=== PATIENT | male | born 1945 | race Caucasian/White ===

== ENCOUNTER 2019-06-22 10:33 | Observation (INO) | payer MEDICARE, BC ==
[2019-06-22] MEDS ORDERED: Sodium Chloride 0.9% 10 ML Syringe FLUSH PRN (10:55)
--- NOTE | 2019-06-22 10:59 | EDM.PDOC ---
ED HPI GENERAL MEDICAL PROBLEM - General Chief Complaint: Syncope Stated Complaint: DIZZINESS/FALLS Time Seen by Provider: 06/22/19 10:47 Source of Information: Reports: Patient, RN Notes Reviewed History Limitations: Reports: No Limitations - History of Present Illness INITIAL COMMENTS - FREE TEXT/NARRATIVE: Patient is an unfortunate 73-year-old male who presents emergency Department today with complaint of dizziness and syncope. Patient reports that he was in his normal state of health until approximately 4 AM this morning when he awoke to get out of bed to go to the bathroom and felt the room spinning type dizziness. Patient did fall at that time does not remember if he lost consciousness or not. Patient reports that he has had multiple episodes of dizziness and falling since then. He did suffer loss of consciousness as he thinks he fell and hit his head because his glasses were bent and then he called his and told her that and she brought him to the emergency department for evaluation. Positive nausea positive vomiting no chest pain no shortness of breath no hematemesis no hematochezia and no melena Chest Pain Score (Numeric/FACES): 6 - Related Data Allergies Allergy/AdvReac Type Severity Reaction Status Date / Time No Known Allergies Allergy Verified 06/22/19 10:43 Home Meds: Home Meds Meloxicam [Mobic] 7.5 mg PO DAILY 07/16/14 [History] Rosuvastatin [Crestor] 5 mg PO DAILY 07/16/14 [History] Tamsulosin [Flomax] 0.8 mg PO DAILY 07/16/14 [History] Triamterene [Dyrenium] 50 mg PO DAILY 07/16/14 [History] amLODIPine Besylate [Amlodipine Besylate] 10 mg PO DAILY 07/16/14 [History] Past Medical History HEENT History: Reports: Impaired Vision Cardiovascular History: Reports: High Cholesterol, Hypertension Genitourinary History: Reports: Other (See Below) Other Genitourinary History: growth on kidneys Musculoskeletal History: Reports: Arthritis Oncologic (Cancer) History: Reports: Prostate - Infectious Disease History Infectious Disease History: Reports: Chicken Pox, Measles - Past Surgical History GI Surgical History: Reports: Cholecystectomy Social & Family History - Family History Family Medical History: Noncontributory ED ROS GENERAL - Review of Systems Review Of Systems: See Below Constitutional: Denies: Fever, Chills Respiratory: Denies: Shortness of Breath, Cough Cardiovascular: Denies: Chest Pain GI/Abdominal: Reports: Vomiting Neurological: Reports: Dizziness, Headache, Syncope ED EXAM, DIZZINESS - Physical Exam Exam: See Below Exam Limited By: No Limitations General Appearance: Alert, WD/WN, Mild Distress Eye Exam: Bilateral Eye: EOMI, PERRL Ears: Normal External Exam, Normal Canal, Normal TMs Throat/Mouth: Normal Inspection, Normal Lips, Normal Teeth, Normal Gums, Normal Oropharynx, Normal Voice, No Airway Compromise Head Exam: Atraumatic, Normocephalic Vertigo: reproducible (Worsens with position change) Neck: Normal Inspection, Supple, Non-Tender, Full Range of Motion Respiratory/Chest: No Respiratory Distress, Lungs Clear, Normal Breath Sounds, No Accessory Muscle Use, Chest Non-Tender Cardiovascular: Normal Peripheral Pulses, Regular Rate, Rhythm, No Edema, No Gallop, No JVD, No Murmur, No Rub GI/Abdominal: Normal Bowel Sounds, Soft, Non-Tender, No Organomegaly, No Distention, No Abnormal Bruit, No Mass Neurological: Alert, Normal Mood/Affect, Normal Dorsiflexion, CN II-XII Intact, Normal Plantar Flexion, Normal Gait, Normal Reflexes, No Motor/Sensory Deficits , Oriented x 3 Back Exam: Normal Inspection, Full Range of Motion, NT Extremities: Normal Inspection Skin Exam: Warm, Dry, Intact, No Rash EKG INTERPRETATION EKG Date: 06/22/19 Time: 11:44 Rhythm: Other (ST) Rate (Beats/Min): 104 [place]: Normal P-Wave: Present QRS: Normal ST-T: Other (Nonspecific changes) QT: Normal EKG Interpretation Comments: no acute changes Course - Vital Signs Last Recorded V/S: Last Vital Signs Temp 97.7 F 06/22/19 10:35 Pulse 100 06/22/19 10:35 Resp 14 06/22/19 10:35 BP 147/87 H 06/22/19 10:35 Pulse Ox 100 06/22/19 10:35 Orthostatic Blood Pressure [ 112/75 Standing] Orthostatic Blood Pressure [ 119/81 Sitting] Orthostatic Blood Pressure [ 127/78 Supine] - Orders/Labs/Meds Orders: Active Orders 24 hr Category Date Time Status EKG Documentation Completion [RC] ASDIRECTED Care 06/22/19 10:55 Active Orthostatic Vital Signs [RC] ASDIRECTED Care 06/22/19 14:01 Active Sodium Chloride 0.9% [Normal Saline] 1,000 ml Med 06/22/19 14:46 Active IV ONETIME Sodium Chloride 0.9% [Saline Flush] Med 06/22/19 10:55 Active 10 ml FLUSH ASDIRECTED PRN Saline Lock Insert [OM.PC] Stat Oth 06/22/19 10:54 Ordered EKG 12 Lead [EK] Stat Ther 06/22/19 10:54 Ordered Medication Orders Sodium Chloride (Normal Saline) 1,000 mls @ 1,000 mls/hr IV ONETIME ONE Stop: 06/22/19 15:45 Sodium Chloride (Saline Flush) 10 ml FLUSH ASDIRECTED PRN PRN Reason: Keep Vein Open Last Admin: 06/22/19 11:03 Dose: 10 ml Labs: Laboratory Tests 06/22/19 06/22/19 06/22/19 Range/Units 11:03 11:03 13:05 WBC 11.36 H (4.23-9.07) K/mm3 RBC 4.78 (4.63-6.08) M/mm3 Hgb 14.6 (13.7-17.5) gm/dl Hct 42.4 (40.1-51.0) % MCV 88.7 (79.0-92.2) fl MCH 30.5 (25.7-32.2) pg MCHC 34.4 (32.2-35.5) g/dl RDW Std Deviation 42.1 (35.1-43.9) fL Plt Count 240 (163-337) K/mm3 MPV 10.2 (9.4-12.3) fl Neut % (Auto) 88.9 H (34.0-67.9) % Lymph % (Auto) 7.2 L (21.8-53.1) % [place] % (Auto) 3.6 L (5.3-12.2) % Eos % (Auto) 0 L (0.8-7.0) Baso % (Auto) 0.0 L (0.1-1.2) % Neut # (Auto) 10.10 H (1.78-5.38) K/mm3 Lymph # (Auto) 0.82 L (1.32-3.57) K/mm3 [place] # (Auto) 0.41 (0.30-0.82) K/mm3 Eos # (Auto) 0.00 L (0.04-0.54) K/mm3 Baso # (Auto) 0.00 L (0.01-0.08) K/mm3 Manual Slide Review Abnormal smear Sodium 140 (136-145) mEq/L Potassium 3.8 (3.5-5.1) mEq/L Chloride 103 (98-107) mEq/L Carbon Dioxide 24 (21-32) mEq/L Anion Gap 16.8 H (5-15) BUN 26 H (7-18) mg/dL Creatinine 1.4 H (0.7-1.3) mg/dL Est Cr Clr Drug Dosing 49.25 mL/min Estimated GFR (MDRD) 50 (>60) mL/min BUN/Creatinine Ratio 18.6 H (14-18) Glucose 128 H (83-115) mg/dL Calcium 9.9 (8.5-10.1) mg/dL Total Bilirubin 0.5 (0.2-1.0) mg/dL AST 55 H (15-37) U/L ALT 34 (16-63) U/L Alkaline Phosphatase 77 (46-116) U/L Troponin I < 0.017 (0.00-0.056) ng/mL Total Protein 7.9 (6.4-8.2) g/dl Albumin 4.2 (3.4-5.0) g/dl Globulin 3.7 gm/dL Albumin/Globulin Ratio 1.1 (1-2) TSH 3rd Generation 0.807 (0.358-3.74) uIU/mL Urine Color Yellow (Yellow) Urine Appearance Clear (Clear) Urine pH 6.0 (5.0-8.0) Ur Specific [place] > or = 1.030 (1.005-1.030) Urine Protein 1+ H (Negative) Urine Glucose (UA) Negative (Negative) Urine Ketones Negative (Negative) Urine Occult Blood Negative (Negative) Urine Nitrite Negative (Negative) Urine Bilirubin Negative (Negative) Urine Urobilinogen 0.2 (0.2-1.0) Ur Leukocyte Esterase Negative (Negative) Urine RBC 0-5 (0-5) /hpf Urine WBC 0-5 (0-5) /hpf Ur Epithelial Cells 0-5 (0-5) /hpf Urine Bacteria Few (FEW) /hpf Hyaline Casts 5-10 H (0-5) /lpf Urine Mucus Many H (FEW) /hpf Meds: Medications Generic Name Dose Route Start Last Admin Trade Name Freq PRN Reason Stop Dose Admin Sodium Chloride 1,000 mls @ 1,000 mls/hr 06/22/19 14:46 Normal Saline IV 06/22/19 15:45 ONETIME ONE Sodium Chloride 10 ml 06/22/19 10:55 06/22/19 11:03 Saline Flush FLUSH 10 ml ASDIRECTED PRN Administration Keep Vein Open Discontinued Medications Generic Name Dose Route Start Last Admin Trade Name Freq PRN Reason Stop Dose Admin Meclizine HCl 25 mg 06/22/19 12:07 06/22/19 12:14 Antivert PO 06/22/19 12:08 25 mg ONETIME ONE Administration Ondansetron HCl 4 mg 06/22/19 12:10 06/22/19 12:14 Zofran IVPUSH 06/22/19 12:11 4 mg ONETIME ONE Administration - Re-Assessments/Exams Free Text/Narrative Re-Assessment/Exam: 06/22/19 13:58 MRI brain shows "impression: #1 Senescent changes as noted above. #2 no acute effusion Ralley's are seen. #3 [place] of the internal auditory canals appear unremarkable." CT head "impression: #1 Senescent changes as noted above. #2 nothing acute is appreciated on noncontrast head CT exam." 06/22/19 14:47 Free Text/Narrative Re-Assessment/Exam: 06/22/19 14:54 Discussed case with excepts patient into observation here for syncope Free Text/Narrative Re-Assessment/Exam: 06/22/19 14:55 Discussed case with patient answered all questions patient and agrees to inpatient observation on telemetry floor Departure - Departure Time of Disposition: 14:54 Disposition: Refer to Observation Clinical Impression: Syncope Qualifiers: Syncope type: unspecified Qualified Code(s): R55 - Syncope and collapse - Discharge Information Referrals: Jai Simon MD [Primary Care Provider] - Forms: ED Department Discharge Sepsis Event Note - Evaluation Sepsis Screening Result: No Definite Risk - Focused Exam Vital Signs: Vital Signs Temp Pulse Resp BP Pulse Ox 06/22/19 10:35 97.7 F 100 14 147/87 H 100 Date Exam was Performed: 06/22/19 Time Exam was Performed: 14:54 - My Orders Last 24 Hours: My Active Orders 06/22/19 10:54 Saline Lock Insert [OM.PC] Stat EKG 12 Lead [EK] Stat 06/22/19 10:55 EKG Documentation Completion [RC] ASDIRECTED Sodium Chloride 0.9% [Saline Flush] 10 ml FLUSH ASDIRECTED PRN 06/22/19 14:01 Orthostatic Vital Signs [RC] ASDIRECTED 06/22/19 14:46 Sodium Chloride 0.9% [Normal Saline] 1,000 ml IV ONETIME - Assessment/Plan Last 24 Hours: My Active Orders 06/22/19 10:54 Saline Lock Insert [OM.PC] Stat EKG 12 Lead [EK] Stat 06/22/19 10:55 EKG Documentation Completion [RC] ASDIRECTED Sodium Chloride 0.9% [Saline Flush] 10 ml FLUSH ASDIRECTED PRN 06/22/19 14:01 Orthostatic Vital Signs [RC] ASDIRECTED 06/22/19 14:46 Sodium Chloride 0.9% [Normal Saline] 1,000 ml IV ONETIME
--- NOTE | 2019-06-22 12:02 | CT ---
Head CT Technique: Multiple axial sections through the brain were obtained. Intravenous contrast was not utilized. Comparison: No prior intracranial imaging is available. Findings: Ventricles along with basal cisterns and sulci over the convexities are mildly prominent. Diminished density is noted within the periventricular and subcortical white matter which is compatible with small vessel ischemic demyelination change. No other abnormal parenchymal densities are seen. No evidence of intracranial hemorrhage. No midline shift or mass effect is appreciated. Bone window settings were reviewed which show no acute calvarial abnormality. Visualized paranasal sinuses show nothing acute. Mastoid sinuses also show nothing acute. Impression: 1. Senescent change as noted above. 2. Nothing acute is appreciated on noncontrast head CT exam. Diagnostic code #2 Study was dictated in [place] Standard Time
--- NOTE | 2019-06-22 12:02 | CR ---
Chest: Two views of the chest were obtained. Comparison: No prior chest imaging. Heart size and mediastinum are normal. Lungs are clear. Bony structures appear unremarkable for the patient's age. Impression: 1. Nothing acute is appreciated on two-view chest x-ray. Diagnostic code #1 Study was dictated in [place] Standard Time
[2019-06-22] MEDS ORDERED: Meclizine 12.5 MG Tab PO ONE (12:07)
[2019-06-22] MEDS ORDERED: Ondansetron 4 MG/2 ML SDV IVPUSH ONE (12:10)
--- NOTE | 2019-06-22 13:34 | MR ---
MRI brain Technique: T1 sagittal; T2, T2 FLAIR, T1, diffusion and gradient echo axial; thin T2 gradient echo axial images through the internal auditory canals. Comparison: Prior head CT study performed earlier on the same day (11:08 AM). Findings: Ventricles along with basal cisterns and sulci over the convexities are mildly prominent. Multiple areas of increased signal scattered within the periventricular and subcortical white matter compatible with small vessel ischemic demyelination change. No acute diffusion abnormalities are seen. Normal signal void is seen within the major cerebral arteries within the skull base. Contents of the internal auditory canals appear within normal limits. No discrete mass within the internal auditory canals or within the cerebellopontine angle cisterns is seen. No midline shift or mass effect is seen. Impression: 1. Senescent change as noted above. 2. No acute diffusion abnormalities are seen. 3. Contents of the internal auditory canals appear unremarkable. Diagnostic code #2 This report was dictated in [place] Standard Time
[2019-06-22] MEDS ORDERED: Sodium Chloride 0.9% 1,000 ML IV ONE (14:46)
[2019-06-22] MEDS ORDERED: Ondansetron 4 MG/2 ML SDV IV PRN (17:00)
[2019-06-22] MEDS ORDERED: Acetaminophen 325 MG Tab PO PRN (17:00)
--- NOTE | 2019-06-22 17:22 | PCM.HP.2 ---
H&P History of Present Illness - General Date of Service: 06/22/19 Admit Problem/Dx: Admission Diagnosis/Problem Admission Diagnosis/Problem Syncope - History of Present Illness Initial Comments - Free Text/Narative: 73-year-old male with history of hypertension, hyperlipidemia, BPH, and a "growth on his kidneys" presented to the emergency room after having 2 syncopal episodes this morning. Patient states that when he woke up this morning at 4 AM he turned over to his right side and became dizzy. He developed dry heaves and then on the way to the bathroom he fell momentarily losing consciousness. Patient states that he was heading to the bathroom. He states that it felt like the room was spinning. He did not hit his head on this occasion. Proximally and hour or more later he had gone back to bed and again developed vertigo-like symptoms, got up to go to the bathroom, became dizzy again and had a longer period of loss of consciousness. Patient fell and hit his head. He states he bent his glasses and now he has a clear abrasion on his forehead. Patient states that he did have a cold and congestion approximately a week ago. He is on losartan, amlodipine, and triamterene for blood pressure control. He has never had a stroke, heart attack, or other neurologic condition. Chest Pain Score (Numeric/FACES): 6 - Related Data Allergies/Adverse Reactions: Allergies Allergy/AdvReac Type Severity Reaction Status Date / Time No Known Allergies Allergy Verified 06/22/19 10:43 Home Medications: Home Meds Meloxicam [Mobic] 7.5 mg PO DAILY 07/16/14 [History] Rosuvastatin [Crestor] 5 mg PO DAILY 07/16/14 [History] Tamsulosin [Flomax] 0.8 mg PO DAILY 07/16/14 [History] Triamterene [Dyrenium] 50 mg PO DAILY 07/16/14 [History] amLODIPine Besylate [Amlodipine Besylate] 10 mg PO DAILY 07/16/14 [History] Past Medical History HEENT History: Reports: Impaired Vision Other HEENT History: wears eyeglasses. Cardiovascular History: Reports: High Cholesterol, Hypertension Genitourinary History: Reports: Other (See Below) Other Genitourinary History: growth on kidneys Musculoskeletal History: Reports: Arthritis Oncologic (Cancer) History: Reports: Prostate - Infectious Disease History Infectious Disease History: Reports: Chicken Pox, Measles - Past Surgical History GI Surgical History: Reports: Cholecystectomy Social & Family History - Family History Family Medical History: Noncontributory - Tobacco Use Smoking Status *Q: Former Smoker Used Tobacco, but Quit: Yes Month/Year Tobacco Last Used: September 1969 - Caffeine Use Caffeine Use: Reports: Coffee, Soda - Recreational Drug Use Recreational Drug Use: No H&P Review of Systems - Review of Systems: Review Of Systems: Comprehensive ROS is negative, except as noted in HPI. Exam - Exam Exam: See Below - Vital Signs Vital Signs: Last Vital Signs Temp 98.5 F 06/22/19 16:20 Pulse 102 H 06/22/19 16:20 Resp 20 06/22/19 16:20 BP 98/71 06/22/19 16:20 Pulse Ox 96 06/22/19 16:20 Orthostatic Blood Pressure [ 112/75 Standing] Orthostatic Blood Pressure [ 119/81 Sitting] Orthostatic Blood Pressure [ 127/78 Supine] Weight: 195 lb - Exam Quality Assessment: No: Supplemental Oxygen General: Alert, Oriented, 4 HEENT: Conjunctiva Clear, EACs Clear, Hearing Intact, Mucosa Moist & [place], Pupils Reactive, PERRLA Neck: Supple, Trachea Midline. No: Lymphadenopathy Lungs: Clear to Auscultation, Normal Respiratory Effort Cardiovascular: Regular Rate, Regular Rhythm GI/Abdominal Exam: Normal Bowel Sounds, Soft, Non-Tender, No Organomegaly, No Distention, No Abnormal Bruit, No Mass, Pelvis Stable Back Exam: Normal Inspection Extremities: Normal Inspection, Normal Range of Motion, Non-Tender, No Pedal Edema, Normal Capillary Refill Skin: Warm, Dry, Intact Neurological: Cranial Nerves Intact, Normal Speech, Normal Tone, Sensation Intact Neuro Extensive - Mental Status: Alert, Oriented x3, Normal Mood/Affect, Normal Cognition, Memory Intact Neuro Extensive - Motor, Sensory, Reflexes: CN II-XII Intact, Other ([place]- Hallpike maneuver is weakly positive with nystagmus and vertigo with a brief latency of a few seconds that lasted approximately 30 seconds.) Psychiatric: Alert, Normal Affect, Normal Mood - Patient Data Lab Results Last 24 hrs: Laboratory Results - last 24 hr 06/22/19 06/22/19 06/22/19 Range/Units 11:03 11:03 13:05 WBC 11.36 H (4.23-9.07) K/mm3 RBC 4.78 (4.63-6.08) M/mm3 Hgb 14.6 (13.7-17.5) gm/dl Hct 42.4 (40.1-51.0) % MCV 88.7 (79.0-92.2) fl MCH 30.5 (25.7-32.2) pg MCHC 34.4 (32.2-35.5) g/dl RDW Std Deviation 42.1 (35.1-43.9) fL Plt Count 240 (163-337) K/mm3 MPV 10.2 (9.4-12.3) fl Neut % (Auto) 88.9 H (34.0-67.9) % Lymph % (Auto) 7.2 L (21.8-53.1) % [place] % (Auto) 3.6 L (5.3-12.2) % Eos % (Auto) 0 L (0.8-7.0) Baso % (Auto) 0.0 L (0.1-1.2) % Neut # (Auto) 10.10 H (1.78-5.38) K/mm3 Lymph # (Auto) 0.82 L (1.32-3.57) K/mm3 [place] # (Auto) 0.41 (0.30-0.82) K/mm3 Eos # (Auto) 0.00 L (0.04-0.54) K/mm3 Baso # (Auto) 0.00 L (0.01-0.08) K/mm3 Manual Slide Review Abnormal smear Sodium 140 (136-145) mEq/L Potassium 3.8 (3.5-5.1) mEq/L Chloride 103 (98-107) mEq/L Carbon Dioxide 24 (21-32) mEq/L Anion Gap 16.8 H (5-15) BUN 26 H (7-18) mg/dL Creatinine 1.4 H (0.7-1.3) mg/dL Est Cr Clr Drug Dosing 49.25 mL/min Estimated GFR (MDRD) 50 (>60) mL/min BUN/Creatinine Ratio 18.6 H (14-18) Glucose 128 H (83-115) mg/dL Calcium 9.9 (8.5-10.1) mg/dL Total Bilirubin 0.5 (0.2-1.0) mg/dL AST 55 H (15-37) U/L ALT 34 (16-63) U/L Alkaline Phosphatase 77 (46-116) U/L Troponin I < 0.017 (0.00-0.056) ng/mL Total Protein 7.9 (6.4-8.2) g/dl Albumin 4.2 (3.4-5.0) g/dl Globulin 3.7 gm/dL Albumin/Globulin Ratio 1.1 (1-2) TSH 3rd Generation 0.807 (0.358-3.74) uIU/mL Urine Color Yellow (Yellow) Urine Appearance Clear (Clear) Urine pH 6.0 (5.0-8.0) Ur Specific [place] > or = 1.030 (1.005-1.030) Urine Protein 1+ H (Negative) Urine Glucose (UA) Negative (Negative) Urine Ketones Negative (Negative) Urine Occult Blood Negative (Negative) Urine Nitrite Negative (Negative) Urine Bilirubin Negative (Negative) Urine Urobilinogen 0.2 (0.2-1.0) Ur Leukocyte Esterase Negative (Negative) Urine RBC 0-5 (0-5) /hpf Urine WBC 0-5 (0-5) /hpf Ur Epithelial Cells 0-5 (0-5) /hpf Urine Bacteria Few (FEW) /hpf Hyaline Casts 5-10 H (0-5) /lpf Urine Mucus Many H (FEW) /hpf Result Diagrams: 06/22/19 11:03 06/22/19 11:03 Imaging Impressions Last 24 hrs: MRI of the brain: 1. Senescent change with small vessel ischemic demyelination. 2. No acute diffusion abnormalities 3. Contents of the internal auditory canals appear unremarkable. Chest x-ray Unremarkable Sepsis Event Note - Evaluation Sepsis Screening Result: No Definite Risk - Focused Exam Vital Signs: Vital Signs Temp Pulse Resp BP Pulse Ox 06/22/19 16:20 98.5 F 102 H 20 98/71 96 06/22/19 10:35 97.7 F 100 14 147/87 H 100 Date Exam was Performed: 06/22/19 Time Exam was Performed: 17:07 Problem List Initiated/Reviewed/Updated: Yes Orders Last 24hrs: Active Orders 24 hr Category Date Time Status Patient Status [ADT] Routine ADT 06/22/19 15:32 Active Antiembolic Devices [RC] PER UNIT ROUTINE Care 06/22/19 17:03 Ordered EKG Documentation Completion [RC] ASDIRECTED Care 06/22/19 10:55 Active Orthostatic Vital Signs [RC] ASDIRECTED Care 06/22/19 14:01 Active Oxygen Therapy [RC] PRN Care 06/22/19 17:00 Ordered Up With Assistance [RC] ASDIRECTED Care 06/22/19 17:00 Ordered VTE/DVT Education [RC] PER UNIT ROUTINE Care 06/22/19 17:00 Ordered Vital Signs [RC] Q4H Care 06/22/19 17:00 Ordered PT Evaluation and Treatment [CONS] Routine Cons 06/22/19 17:00 Ordered Regular Diet [DIET] Diet 06/22/19 Dinner Ordered CBC WITH AUTO DIFF [HEME] AM Lab 06/23/19 05:11 Ordered COMPREHENSIVE METABOLIC PN,CMP [CHEM] AM Lab 06/23/19 05:11 Ordered MAGNESIUM [CHEM] AM Lab 06/23/19 05:11 Ordered Acetaminophen [Tylenol] Med 06/22/19 17:00 Ordered 650 mg PO Q4H PRN Lactated Ringers [Ringers, Lactated] 1,000 ml Med 06/22/19 17:00 Ordered IV ASDIRECTED Ondansetron [Zofran] Med 06/22/19 17:00 Ordered 4 mg IV Q4H PRN Sodium Chloride 0.9% [Saline Flush] Med 06/22/19 10:55 Active 10 ml FLUSH ASDIRECTED PRN Saline Lock Insert [OM.PC] Stat Oth 06/22/19 10:54 Ordered Sequential Compression Device [OM.PC] Per Unit Routine Oth 06/22/19 17:01 Ordered Resuscitation Status Routine Resus Stat 06/22/19 17:00 Ordered EKG 12 Lead [EK] Stat Ther 06/22/19 10:54 Ordered Medication Orders Acetaminophen (Tylenol) 650 mg PO Q4H PRN PRN Reason: Pain (Mild 1-3)/fever Lactated Ringer's (Ringers, Lactated) 1,000 mls @ 75 mls/hr IV ASDIRECTED [place] Ondansetron HCl (Zofran) 4 mg IV Q4H PRN PRN Reason: Nausea/Vomiting Sodium Chloride (Saline Flush) 10 ml FLUSH ASDIRECTED PRN PRN Reason: Keep Vein Open Last Admin: 06/22/19 11:03 Dose: 10 ml Assessment/Plan Comment:: Assessment * Syncope * Negative orthostasis * Vertigo, BPPV versus labyrinthitis * Renal insufficiency unknown chronic versus acute * Hypertension Plan * Refer for observation telemetry * Consult physical therapy * Echocardiogram and carotid Dopplers * LR at 75 mL/h * CBC, CMP, magnesium in the morning * Restart losartan and amlodipine in the morning. * Hold triamterene * Monitor blood pressure * VTE prophylaxis with SCDs * CODE STATUS: Full code * Anticipated length of stay 1 to 2 days. - Mortality Measure Prognosis:: Good
[2019-06-22] MEDS: Lactated Ringers 1,000 ML IV SCH (20:39)
[2019-06-23] MEDS ORDERED: Tamsulosin 0.4 MG Cap.ER PO SCH (09:00)
[2019-06-23] MEDS ORDERED: amLODIPine 10 MG Tab PO SCH (09:00)
[2019-06-23] MEDS ORDERED: Rosuvastatin 10 MG Tab PO SCH (09:00)
[2019-06-23] MEDS: Lactated Ringers 1,000 ML IV SCH (10:59)
[2019-06-23 12:02] VITALS: BP 143/71; PULSE 84
--- NOTE | 2019-06-23 13:29 | PCM.DCSUM1 ---
Discharge Summary - Hospital Course HPI Initial Comments: Patient came to the ED with complaint of dizziness and syncope. Reports that he was in his normal state of health until approximately 4 AM this morning when he awoke to get out of bed to go to the bathroom and felt the room spinning type dizziness. Patient did fall at that time does not remember if he lost consciousness or not. Patient reports that he has had multiple episodes of dizziness and falling since then. He did suffer loss of consciousness as he thinks he fell and hit his head because his glasses were bent and then he called his and told her that and she brought him to the emergency department for evaluation. Positive nausea and vomiting no chest pain no shortness of breath no hematemesis no hematochezia and no melena Diagnosis: Stroke: No - Discharge Data Discharge Date: 06/23/19 Discharge Disposition: Home, Self-Care 01 Condition: Good - Referral to Home Health Primary Care Physician: Jai Simon MD - Discharge Diagnosis/Problem(s) (1) Benign paroxysmal positional vertigo SNOMED Code(s): 251185177 ICD Code: H81.10 - BENIGN PAROXYSMAL VERTIGO, UNSPECIFIED EAR Status: Acute Current Visit: Yes (2) Dizziness SNOMED Code(s): 804121661, 097261106 ICD Code: R42 - DIZZINESS AND GIDDINESS Status: Acute Current Visit: Yes (3) Fall SNOMED Code(s): 2949905, 982369943 ICD Code: W19.XXXA - UNSPECIFIED FALL, INITIAL ENCOUNTER Status: Acute Current Visit: Yes - Patient Summary/Data Consults: Consultations 06/22/19 17:00 PT Evaluation and Treatment [CONS] Routine Recommended Follow-up Testing/Procedures: Outpatient physical therapy focused on BPPV Hospital Course: Patient was seen in the ED and work up was started for stroke. Alessio Hallpike positive Evaluated by PT who diagnosed BPPV Patient started on Meclizine, no longer dizzy. PT recommending outpatient follow up. CT, MRI negative - Patient Instructions Diet: Usual Diet as Tolerated Driving: Do Not Drive Driving, Other: Do not drive until your symptoms have resolved Showering/Bathing: May Shower - Discharge Plan *PRESCRIPTION DRUG MONITORING PROGRAM REVIEWED*: Not Applicable *COPY OF PRESCRIPTION DRUG MONITORING REPORT IN PATIENT GIOVANNA: Not Applicable Prescriptions/Med Rec: Meclizine [Antivert] 25 mg PO BID #60 tab.chew Home Medications: Home Meds Meloxicam [Mobic] 7.5 mg PO DAILY 07/16/14 [History] Rosuvastatin [Crestor] 5 mg PO DAILY 07/16/14 [History] Tamsulosin [Flomax] 0.8 mg PO DAILY 07/16/14 [History] amLODIPine Besylate [Amlodipine Besylate] 10 mg PO DAILY 07/16/14 [History] Meclizine [Antivert] 25 mg PO BID #60 tab.chew 06/23/19 [Rx] Patient Handouts: Vertigo, [id number], Labyrinthitis, [id number], Benign Positional Vertigo, Dizziness, [id number], Dizziness Referrals: Jai Simon MD [Primary Care Provider] - 06/30/19 11:00 am (Please follow up with Dr. Simon on June 30 at 11:00.) - Discharge Summary/Plan Comment DC Time >30 min.: Yes - General Info Date of Service: 06/23/19 Admission Dx/Problem (Free Text: Feeling better No longer dizzy Tolerating diet - Patient Data Vitals - Most Recent: Last Vital Signs Temp 97.5 F 06/23/19 08:45 Pulse 84 06/23/19 11:04 Resp 20 06/23/19 11:04 BP 143/71 H 06/23/19 11:04 Pulse Ox 94 L 06/23/19 11:04 Orthostatic Blood Pressure [ 112/75 Standing] Orthostatic Blood Pressure [ 119/81 Sitting] Orthostatic Blood Pressure [ 127/78 Supine] Weight - Most Recent: 87.407 kg - Exam General: Reports: Alert, Oriented, Cooperative, No Acute Distress HEENT: Reports: Pupils Equal, Pupils Reactive, Mucous Membr. Moist/[place] Neck: Reports: Supple, Trachea Midline, No JVD, No Thyromegaly, +2 Carotid Pulse wo Bruit Lungs: Reports: Clear to Auscultation, Normal Respiratory Effort. Denies: Crackles, Rales, Rhonchi, Wheezing Cardiovascular: Reports: Regular Rate, Regular Rhythm. Denies: Murmurs, Gallops , Rubs GI/Abdominal Exam: Normal Bowel Sounds, Soft, Non-Tender. No: Distended, Guarding, Rigid Back Exam: Reports: Normal Inspection. Denies: CVA Tenderness (L), CVA Tenderness (R) Extremities: Normal Inspection, Non-Tender, No Pedal Edema Skin: Reports: Warm, Dry Neurological: Reports: No New Focal Deficit Psy/Mental Status: Reports: Alert, Normal Affect, Normal Mood
--- NOTE | 2019-06-23 13:48 | US ---
Carotid ultrasound: Multiple real-time images were obtained. Plaque: Moderate amount of heterogeneous and calcified plaque is seen showing irregular surface margins which is within the origin of the left and right internal carotid arteries and within the right carotid bulb Comparison: No prior carotid imaging. Findings: Velocity measurements: Right side: CCA has a peak systolic velocity of 1.38 m/s. ICA has a peak systolic velocity of 1.19 m/s and peak end-diastolic velocity of 0.34 m/s. ECA has a peak systolic velocity of 1.20 m/s. Vertebral artery has a peak systolic velocity of 0.55 m/s. ICA/CCA ratio is 0.86. Left side: CCA has a peak systolic velocity of 0.97 m/s. ICA has a peak systolic velocity of 1.34 m/s and peak end-diastolic velocity of 0.49 m/s. ECA has a peak systolic velocity of 1.30 m/s. Vertebral artery has a peak systolic velocity of 0.56 m/s. ICA/CCA ratio is 1.4. Impression: 1. Moderate amount of plaque as described above. 2. Velocity measurements within both internal carotid arteries correspond to stenosis in the range of 1-49%. Diagnostic code #3 This report was dictated in [place] Standard Time
== END 2019-06-23 16:08 | disposition home or self-care (01) ==
LOC: JD.ED 10:33 → JD.MS 15:32
PROVIDERS: ADMIT Family Medicine; ATTEND Family Medicine
DX: H81.10 Benign paroxysmal vertigo, unspecified ear (principal); I10 Essential (primary) hypertension; E78.5 Hyperlipidemia, unspecified; N40.0 Benign prostatic hyperplasia without lower urinary tract symptoms; E78.00 Pure hypercholesterolemia, unspecified; M19.90 Unspecified osteoarthritis, unspecified site; N28.9 Disorder of kidney and ureter, unspecified; W19.XXXA Unspecified fall, initial encounter; Z79.899 Other long term (current) drug therapy; Z87.891 Personal history of nicotine dependence
CPT/HCPCS: 36415; 70450; 70551; 71046; 80053; 81001; 83735; 84443; 84484; 85025; 93005; 93306; 93880; 95992; 96361; 96374; 97161; 99285; A9270; J2405; J7030; J7120; 96376; G0378

== ENCOUNTER 2020-07-02 10:27 | Emergency (ER) | payer MEDICARE, BC ==
[2020-07-02 10:44] VITALS: BP 150/74; PULSE 80
--- NOTE | 2020-07-02 12:14 | EDM.PDOC ---
ED HPI GENERAL MEDICAL PROBLEM - General Chief Complaint: Lower Extremity Injury/Pain Stated Complaint: R HIP/GROIN PAIN Time Seen by Provider: 07/02/20 11:19 Source of Information: Reports: Patient, RN Notes Reviewed History Limitations: Reports: No Limitations - History of Present Illness INITIAL COMMENTS - FREE TEXT/NARRATIVE: Patient is a 74-year-old male who presents to the ED for his right hip/groin pain. Patient notes this has been going on for the last 10 days or so. He went to see his regular doctor Dr. Simon on Friday, and was referred to orthopedics at [place] on , and was thought to have some sort of sciatic issue or nerve issue and was placed on a course of prednisone. Patient states he has been taking this faithfully but it is not helping much at all. Patient states moving much at all hurts really quite badly. He did have x-rays taken at these visits, and showed degenerative change but no other acute fractures or bony abnormalities. Patient notes he does have a history of a right inguinal hernia, and was questioning the possibility of this returning as he is notes that the pain states somewhat the same. His notes that he has been using a crutch to get around, due to the pain. He did not have any trauma, or any near slips trips or falls. He denies any sick symptoms like fever/chills, cough/shortness of breath, nausea/vomiting/diarrhea. He denies constipation, and states that he has some slow urination, but does not seem to be different from his normal. Right Groin Pain Score (Numeric/FACES): 8 - Related Data Allergies Allergy/AdvReac Type Severity Reaction Status Date / Time No Known Allergies Allergy Verified 07/02/20 10:44 Home Meds: Home Meds Meloxicam [Mobic] 7.5 mg PO DAILY 07/16/14 [History] Tamsulosin [Flomax] 0.8 mg PO DAILY 07/16/14 [History] Losartan [Cozaar] 50 mg PO DAILY 06/23/19 [History] Meclizine [Antivert] 25 mg PO BID #60 tab.chew 06/23/19 [Rx] Rosuvastatin [Crestor] 10 mg PO DAILY 06/23/19 [History] Triamterene/Hydrochlorothiazid [Triamterene-HCTZ 37.5-25 MG] 1 cap PO DAILY 06/23/19 [History] amLODIPine [Norvasc] 5 mg PO DAILY 06/23/19 [History] Acetaminophen/oxyCODONE [Percocet 325-5 MG] 1 each PO Q6H PRN #15 tab 07/02/20 [Rx] Past Medical History HEENT History: Reports: Impaired Vision Other HEENT History: wears eyeglasses. Cardiovascular History: Reports: High Cholesterol, Hypertension Genitourinary History: Reports: Other (See Below) Other Genitourinary History: growth on kidneys Musculoskeletal History: Reports: Arthritis Oncologic (Cancer) History: Reports: Prostate - Infectious Disease History Infectious Disease History: Reports: Chicken Pox, Measles, Mumps - Past Surgical History HEENT Surgical History: Reports: Tonsillectomy GI Surgical History: Reports: Cholecystectomy Other Oncologic Surgeries/Procedures: seed implants. Social & Family History - Family History Family Medical History: No Pertinent Family History - Tobacco Use Tobacco Use Status *Q: Former Tobacco User Used Tobacco, but Quit: Yes Month/Year Tobacco Last Used: 10/1970 - Caffeine Use Caffeine Use: Reports: Coffee - Recreational Drug Use Recreational Drug Use: No Review of Systems - Review of Systems Review Of Systems: Comprehensive ROS is negative, except as noted in HPI. ED EXAM, GENERAL - Physical Exam Exam: See Below Exam Limited By: No Limitations General Appearance: Alert, WD/WN, No Apparent Distress Respiratory/Chest: No Respiratory Distress, Lungs Clear, Normal Breath Sounds, No Accessory Muscle Use, Chest Non-Tender Cardiovascular: Normal Peripheral Pulses, Regular Rate, Rhythm, No Edema Peripheral Pulses: 2+: Radial (L), Radial (R) GI/Abdominal: Normal Bowel Sounds, Soft, Non-Tender, No Distention, No Mass Extremities: Normal Inspection, Normal Capillary Refill Neurological: Alert, Oriented, Normal Cognition, No Motor/Sensory Deficits Psychiatric: Normal Affect, Normal Mood Skin Exam: Warm, Dry, Intact, Normal Color, No Rash Course - Vital Signs Last Recorded V/S: Last Vital Signs Temp 99.3 F 07/02/20 10:39 Pulse 80 07/02/20 10:39 Resp 20 07/02/20 10:39 BP 150/74 H 07/02/20 10:39 Pulse Ox 100 07/02/20 10:39 - Orders/Labs/Meds Orders: Active Orders 24 hr Category Date Time Status Abdomen Pelvis wo Cont [CT] Stat Exams 07/02/20 11:33 Taken - Re-Assessments/Exams Free Text/Narrative Re-Assessment/Exam: 07/02/20 12:14 Patient presents to the ED for the evaluation of his right hip/groin pain. I did discuss imaging with Dr. Alex, and he suggest doing an abdomen pelvis CT without IV contrast for evaluation of a possible hernia. This has been ordered and obtained, official radiology read is pending at this time. 07/02/20 12:32 CT is back and demonstrates no significant right inguinal hernia. There is a fat-containing left inguinal hernia, radionucleotide seeds in the prostate, no remarkable fractures in the patient's bones or joints. I will see if the patient would like some pain medication for ongoing pain management and I will likely have him try to follow-up with his regular care provider for ongoing issues. Departure - Departure Time of Disposition: 12:51 Disposition: Home, Self-Care 01 Condition: Good Clinical Impression: Right hip pain - Discharge Information *PRESCRIPTION DRUG MONITORING PROGRAM REVIEWED*: Yes *COPY OF PRESCRIPTION DRUG MONITORING REPORT IN PATIENT GIOVANNA: No Instructions: Joint Pain, [id number] Referrals: Jai Simon MD [Primary Care Provider] - Forms: ED Department Discharge Additional Instructions: You have been evaluated in the ED for your right hip/groin pain. Your CT demonstrated no sign of an incarcerated hernia in the right inguinal area. You do have a small fat-containing hernia in your left inguinal area however this should not be causing pain or issues at today's visit. The source of your pain is most likely due to arthritis in nature. Please use ice as tolerated to the affected area. You may elevate the affected area to provide further relief from swelling. You may take continue to take all of your other regular medications as previously prescribed by your regular doctors. You were given a prescription for a strong pain medication, oxycodone /acetaminophen 5/325, please take 1 tab every 6 hours as needed for pain not relieved by Tylenol or ibuprofen alone. Please note this does contain Tylenol in it, so do not take more than 4000 mg in a 24-hour time span. These medications can be addictive, so please take as few as possible to achieve adequate pain control. These meds can also be quite constipating, recommend that you increase your oral fluid intake and take a stool softener like MiraLAX while taking these medications. Please call Ortho for follow-up and further evaluation Dr. Fu is our orthopedic surgeon, his office number is [phone]. Please call and set up an appointment as soon as possible for further management. You may also try to contact Dr. Jackson office, to see if he injects hips for arthritis pain. Please return to ED if your symptoms should change or worsen. Sepsis Event Note (ED) - Evaluation Sepsis Screening Result: No Definite Risk - Focused Exam Vital Signs: Vital Signs Temp Pulse Resp BP Pulse Ox 07/02/20 10:39 99.3 F 80 20 150/74 H 100 - My Orders Last 24 Hours: My Active Orders 07/02/20 11:33 Abdomen Pelvis wo Cont [CT] Stat - Assessment/Plan Last 24 Hours: My Active Orders 07/02/20 11:33 Abdomen Pelvis wo Cont [CT] Stat
[2020-07-02] MEDS ORDERED: Acetaminophen/oxyCODONE 325-5 MG Tab PO ONE (12:55)
--- NOTE | 2020-07-03 08:20 | CT ---
CT abdomen and pelvis Technique: Multiple axial sections were obtained from slightly below the dome of the diaphragm inferiorly through the pubic symphysis. Intravenous and oral contrast was not utilized. Reconstructed coronal and sagittal images were obtained. Comparison: No prior abdominal imaging is available. Findings: Visualized lung bases show nothing acute. Noncontrast appearance of the visualized liver and spleen appear normal. Adrenal glands show no nodule. Pancreas appears within normal limits. Surgical clips are noted from prior cholecystectomy. Small abnormality is noted off the inferior right kidney which shows a small amount of fat as well as calcification and most likely represents a benign lesion measuring 1.9 cm. Kidneys show no evidence of ureteral dilatation or obstruction by ureteral calculus. Aorta shows atherosclerotic calcification with no aneurysm. No retroperitoneal adenopathy or mesenteric abnormalities are appreciated. No pelvic mass or adenopathy is seen. Radiation implant seeds are seen within the prostate gland. Partial fat containing left inguinal hernia is seen. No right inguinal hernia is seen. No additional abdominal wall hernia is identified. Bone window settings were reviewed which show no acute osseous finding. Impression: 1. Findings as noted above. 2. Small partial fat containing inguinal hernia. 3. No right-sided hernia seen. Nothing acute is identified. Diagnostic code #2 I agree with preliminary report from [facility], finalized on 07/02/20, 1:24 PM [facility]
== END 2020-07-02 13:16 | disposition home or self-care (01) ==
LOC: JD.ED 10:27
DX: M25.551 Pain in right hip (principal); E78.00 Pure hypercholesterolemia, unspecified; I10 Essential (primary) hypertension; Z87.891 Personal history of nicotine dependence; Z79.899 Other long term (current) drug therapy
CPT/HCPCS: 74176; 99283; A9270

== ENCOUNTER 2024-11-28 07:23 | Emergency (ER) | payer MEDICARE, BC ==
[2024-11-28] MEDS ORDERED: Naloxone 0.4 MG/ML SDV IVPUSH PRN (08:08)
[2024-11-28 08:24] LABS: BASOPHILS PERCENT AUTO 0.3 % (0.0-1.0); EOSINOPHILS ABSOLUTE AUTO 0.1 K/mm3 (0.0-0.4); HEMATOCRIT 42.1 % (42.0-52.0); HEMOGLOBIN 14.2 gm/dl (14.0-18.0); IMMATURE GRAN ABSOLUTE AUTO 0.03 K/mm3 (0.00-0.05); IMMATURE GRAN PERCENT AUTO 0.3 % (0.0-0.4); LYMPHOCYTES ABSOLUTE AUTO 1.1 K/mm3 (1.0-4.8); LYMPHOCYTES PERCENT AUTO 12.7 % (24.0-44.0); MEAN CORPUSCULAR HEMOGLOBIN 31.2 pg (28.0-32.0); MEAN CORPUSCULAR HGB CONC 33.7 g/dl (32.0-36.0); MEAN CORPUSCULAR VOLUME 92.5 fl (83.0-99.0); MEAN PLATELET VOLUME 9.8 fl (9.4-12.4); MONOCYTES ABSOLUTE AUTO 0.8 K/mm3 (0.0-0.8); MONOCYTES PERCENT AUTO 9.4 % (0.0-8.0); NEUTROPHILS ABSOLUTE AUTO 6.9 K/mm3 (1.8-7.7); NEUTROPHILS PERCENT AUTO 76.3 % (41.0-71.0); PLATELET COUNT,PLT 223 K/mm3 (150-400); RED BLOOD CELL COUNT 4.55 M/mm3 (4.52-5.90); WHITE BLOOD CELL COUNT,WBC 8.98 K/mm3 (3.9-11.3)
[2024-11-28 08:25] LABS: APPEARANCE,URINE CLEAR (Clear); BILIRUBIN,URINE NEGATIVE (Negative); COLOR,URINE YELLOW (Yellow); GLUCOSE,URINE NEGATIVE (Negative); KETONES,URINE NEGATIVE (Negative); LEUKOCYTE ESTERASE,URINE NEGATIVE (Negative); NITRITE,URINE NEGATIVE (Negative); OCCULT BLOOD,URINE NEGATIVE (Negative); PH,URINE 6.5 (5.0-8.0); PROTEIN,URINE NEGATIVE (Negative); UROBILINOGEN,URINE 0.2 (0.2-1.0)
[2024-11-28] MEDS: Sodium Chloride 0.9% 10 ML Syringe FLUSH PRN (08:27)
[2024-11-28] MEDS: Morphine 4 MG/ML Syringe IVPUSH ONE ×2 (08:28→12:40)
[2024-11-28] MEDS: Aspirin 81 MG Tab.Chew PO ONE (08:28)
[2024-11-28 09:00] LABS: A/G RATIO 0.9 (1-2); ALANINE AMINOTRANSFERASE,ALT 31 U/L (16-63); ALBUMIN 3.5 g/dl (3.4-5.0); ALKALINE PHOSPHATASE 90 U/L (46-116); ANION GAP 15.8 (5-15); ASPARTATE AMNIOTRANSFERASE,AST 53 U/L (15-37); BILIRUBIN TOTAL 0.6 mg/dL (0.2-1.0); BLOOD UREA NITROGEN,BUN 27 mg/dL (7-18); BUN/CREATININE RATIO 20.8 (14-18); CALCIUM 9.6 mg/dL (8.5-10.1); CARBON DIOXIDE,CO2 26 mEq/L (21-32); CHLORIDE,CL 104 mEq/L (98-107); CREATININE 1.3 mg/dL (0.7-1.3); EST CRCL DRUG DOSING (CG) 49.13 mL/min; ESTIMATED GFR 57 mL/min (>60); GLUCOSE RANDOM 91 mg/dL (70-99); POTASSIUM,K 3.8 mEq/L (3.5-5.1); PROTEIN TOTAL,TP 7.4 g/dl (6.4-8.2); SODIUM,NA 142 mEq/L (136-145)
[2024-11-28 09:01] LABS: TROPONIN I HIGH SENSITIVITY < 4 pg/mL (<=76)
[2024-11-28] MEDS ORDERED: Sodium Chloride 0.9% 100 ML IV SCH (11:45)
[2024-11-28] MEDS: Iopamidol 755 Mg/ML 100 ML Bottle IVPUSH ONE (11:47)
[2024-11-28] MEDS: LORazepam 2 MG/ML SDV IVPUSH ONE (14:08)
[2024-11-28] MEDS: Apixaban 5 MG Tab PO ONE (16:42)
[2024-11-28] MEDS: Acetaminophen/oxyCODONE 325-5 MG Tab PO ONE (16:43)
[2024-11-28 17:19] VITALS: BP 109/69; PULSE 88
[2024-11-29] MEDS ORDERED: Apixaban 5 MG Tab PO ONE (15:26)
== END 2024-11-28 16:35 | disposition home or self-care (01) ==
LOC: JD.ED 07:23
DX: I26.99 Other pulmonary embolism without acute cor pulmonale (principal); E78.00 Pure hypercholesterolemia, unspecified; I10 Essential (primary) hypertension; Z86.16 Personal history of COVID-19; Z79.899 Other long term (current) drug therapy; Z79.01 Long term (current) use of anticoagulants
CPT/HCPCS: 36415; 71045; 71275; 80053; 81003; 83735; 83880; 84484; 85025; 85379; 93005; 96374; 96375; 96376; 99284; A9270; J2060; J2270; Q9967; 93010